=== PATIENT | female | born 1980 | race Caucasian/White ===

== ENCOUNTER → 2019-03-31 | Outpatient (CLI) | payer BC ==
--- NOTE | 2019-03-31 17:48 | Diagnostic Imaging Report ---
INDICATION: Cough. COMPARISON: No prior examinations are available of comparison. FINDINGS: The heart size, mediastinal configuration, and pulmonary vascularity are within normal limits. There is no pleural effusion, pneumothorax, or pneumonia. The osseous structures are unremarkable. IMPRESSION: No acute cardiopulmonary abnormality. Dictated by: Dictated on workstation # [id number]
== END ==
LOC: RAD 16:47
PROVIDERS: ATTEND Family Medicine
DX: R05 Cough (principal); R07.89 Other chest pain
CPT/HCPCS: 71045

== ENCOUNTER → 2021-03-06 | Outpatient (CLI) | payer BC ==
--- NOTE | 2021-03-06 18:42 | Diagnostic Imaging Report ---
PROCEDURE: CT abdomen and pelvis without contrast. TECHNIQUE: Multiple contiguous axial images were obtained through the abdomen and pelvis without the use of intravenous contrast. Auto Exposure Controls were utilized during the CT exam to meet ALARA standards for radiation dose reduction. INDICATION: Right kidney stone. Right flank pain. COMPARISON: None. FINDINGS: The lung bases are clear. The heart is normal in size. There is no pericardial effusion. The liver demonstrates no focal lesions. The spleen appears normal. The pancreas is normal. The adrenal glands appear normal. The kidneys appear normal in contour. The right ureter is partially obscured distally. There is a 2 mm calculus in the right pelvis. This could be an intraureteral stone. There is no significant hydronephrosis. The bowel loops are nondistended without obstruction. The appendix is not seen, but no secondary findings of appendicitis are identified. No lymphadenopathy is seen. No acute osseous abnormality is seen. IMPRESSION: 1. 2 mm calculus in the right pelvis, could be within the distal ureter, versus a phlebolith. There is no significant hydronephrosis appreciated. Dictated by: Dictated on workstation # [id number]
== END ==
LOC: RAD 17:10
PROVIDERS: ATTEND Urology
DX: N20.0 Calculus of kidney (principal)
CPT/HCPCS: 74176

== ENCOUNTER → 2022-04-04 | Outpatient (CLI) | payer BC ==
--- NOTE | 2022-04-10 13:38 | Diagnostic Imaging Report ---
INDICATION: Routine screening. COMPARISON: 03/07/2021 and 09/05/2015. TECHNIQUE: 2D and 3D bilateral screening mammography was performed with CAD. FINDINGS: Both breasts are heterogeneously dense, limiting the sensitivity of mammography. The parenchymal pattern is stable. No mass or malignant-appearing microcalcifications are seen. The axillae are unremarkable. IMPRESSION: No mammographic features suspicious for malignancy are identified. ACR BI-RADS Category 1: Negative. Result letter will be mailed to the patient. Note: At least 10% of breast cancer is not imaged by mammography. Dictated by: Dictated on workstation # [id number]
== END ==
LOC: RAD 10:45
PROVIDERS: ATTEND Obstetrics & Gynecology
DX: Z12.31 Encounter for screening mammogram for malignant neoplasm of breast (principal)
CPT/HCPCS: 77063; 77067

== ENCOUNTER → 2023-05-20 | Outpatient (CLI) | payer BC ==
--- NOTE | 2023-05-20 14:21 | Diagnostic Imaging Report ---
INDICATION: Routine screening. COMPARISON: 04/22/2022 and 03/07/2021. TECHNIQUE: 2D and 3D bilateral screening mammography was performed with CAD. FINDINGS: Both breasts are heterogeneously dense, limiting the sensitivity of mammography. The parenchymal pattern is stable. No mass or malignant-appearing microcalcifications are seen. The axillae are unremarkable. IMPRESSION: No mammographic features suspicious for malignancy are identified. ACR BI-RADS Category 1: Negative. Result letter will be mailed to the patient. Note: At least 10% of breast cancer is not imaged by mammography. Dictated by: Dictated on workstation # [id number]
== END ==
LOC: RAD 10:02
PROVIDERS: ATTEND Obstetrics & Gynecology
DX: Z12.31 Encounter for screening mammogram for malignant neoplasm of breast (principal)
CPT/HCPCS: 77063; 77067

== ENCOUNTER → 2023-07-02 | Outpatient (CLI) | payer BC ==
[~2023-07-02] MED LIST: GADOTERATE 0.5 MMOL/ML (CLARISCAN) 15 ML VIAL IV ONE
--- NOTE | 2023-07-02 13:06 | Diagnostic Imaging Report ---
PROCEDURE: MR imaging of the brain with and without contrast. TECHNIQUE: Multiplanar, multisequence MR imaging of the brain was performed with and without contrast. INDICATION: Double vision. Vertigo. Abnormal eye movement. COMPARISON: none FINDINGS: No acute ischemia, mass, or hemorrhage. The ventricles, cortical sulci, and basilar cisterns are symmetric and unremarkable. The sellar and suprasellar regions have a normal appearance. There is partial visualization of decrease in normal flow-void within the distal left internal carotid artery just before it enters the skull base. Otherwise, the major intra-cranial flow voids are intact. The brainstem and posterior fossa are unremarkable. Mucosal thickening is seen in the maxillary sinuses. The mastoid air cells demonstrate normal signal characteristics. The globes and orbits are symmetric and unremarkable. The scalp and calvarium have a normal appearance. IMPRESSION: 1. No acute ischemia, mass, or hemorrhage. 2. Decreased normal flow-void within the distal left internal carotid artery just before entering the skull base. This is only partially visualized on this exam. Findings could be due to slow flow versus stenosis/occlusion. Recommend CTA of the neck to further evaluate. 3. Paranasal sinus disease involving the maxillary sinuses. Dictated by: Dictated on workstation # [id number]
== END ==
LOC: RAD 10:25
PROVIDERS: ATTEND Otolaryngology Otolaryngology/Facial Plastic Surgery
DX: J32.0 Chronic maxillary sinusitis (principal); H53.2 Diplopia; R42 Dizziness and giddiness
CPT/HCPCS: 70553

== ENCOUNTER → 2023-07-08 | Outpatient (CLI) | payer BC ==
[~2023-07-08] MED LIST changes: -GADOTERATE 0.5 MMOL/ML (CLARISCAN) 15 ML VIAL IV ONE; +HOLD METFORMIN - RECEIVED CONTRAST 20 ML VIAL IV SCH; +IOHEXOL 350 MG/ML 100 ML (OMNIPAQUE 350) VIAL IV ONE; +NS 100 ML (IVPB) BAG IV ONE
[2023-07-08 12:56] LABS: CREATININE SERUM 0.85 MG/DL (0.60-1.30)
--- NOTE | 2023-07-08 15:02 | Diagnostic Imaging Report ---
PROCEDURE: CT neck soft tissue with contrast. TECHNIQUE: Multiple contiguous axial images were obtained through the neck after the administration of contrast. INDICATION: Vertigo. Further evaluation of the distal left internal carotid artery. Loss of flow void on prior MRI. COMPARISON: MRI brain on 07/02/2023. FINDINGS: The visualized portions of the aortic arch demonstrate no evidence of aneurysm or dissection. There is conventional branching pattern of the great vessels of the aorta. The brachiocephalic artery is normal in course and caliber. The right and left common carotid origins are unremarkable. The origin of the left subclavian artery is patent. The common carotid arteries and internal carotid arteries demonstrate a normal course. No stenosis or dissection in the carotid systems. There is subtle luminal irregularity within the bilateral ICA, most prominent in the midportion of the internal carotid arteries. The external carotid arteries are patent and unremarkable. The left vertebral artery is dominant. The origin of the right vertebral artery is seen and is unremarkable. The origin of the left vertebral artery is seen and is unremarkable. There is no focal stenosis seen within the neck. There is no dissection. The vertebral arteries are well visualized to up to the level of the basilar artery. The osseous structures of the cervical spine are unremarkable. Included views through the lung apices demonstrate no focal consolidation. IMPRESSION: 1. No focal stenosis or dissection in the bilateral carotid and vertebral systems. The abnormal flow void within the distal left internal carotid artery likely represented slow flow or artifact. 2. Mild luminal irregularity within the midportion of the internal carotid arteries. This appearance can be seen with fibromuscular dysplasia. Recommend continued follow-up, as indicated. Dictated by: Dictated on workstation # [id number]
== END ==
LOC: RAD 13:15
PROVIDERS: ATTEND Otolaryngology Otolaryngology/Facial Plastic Surgery
DX: I77.89 Other specified disorders of arteries and arterioles (principal)
CPT/HCPCS: 36415; 70498; 82565; 84520